=== PATIENT | female | born 1985 | race Caucasian/White ===

== ENCOUNTER 2024-09-27 09:35 | Emergency (ER) | payer BC ==
[~2024-09-27] VITALS: Ht 172.7 cm; Wt 95.3 kg
[2024-09-27] MEDS ORDERED: SERTRALINE HYDR50 MG PO (09:46)
[2024-09-27] MEDS ORDERED: BUSPIRONE HCL15 MG PO (09:46)
[2024-09-27] MEDS ORDERED: SODIUM CHLORIDE 0.9% 1,000 ML IV ONE (09:55)
[2024-09-27] MEDS ORDERED: Ondansetron Hydrochloride 4 MG/2 ML VIAL IV ONE (09:55)
[2024-09-27 10:15] LABS: BASO # 0.0 10*3/uL (0.0-0.1); BASO % 0.2 % (0.0-1.0); EOS # 0.0 10*3/uL (0.0-0.4); EOS % 0.1 % (1.0-4.0); MEAN CELL VOLUME 87.4 fl (81.0-99.0); MEAN CORPUSCULAR HGB 29.1 pg (27.0-31.0); MEAN PLATELET VOLUME 9.1 fl (9.6-12.3); MONO # 0.7 10*3/uL (0.1-1.0); MONO % 4.1 % (3.0-9.0); NEUT # 14.5 10*3/uL (2.3-7.9); NEUT % 85.6 % (47.0-73.0); NUCLEATED RED BLOOD CELL 0.0 % (0.0-0.0); NUCLEATED RED BLOOD CELL 0.0 10*3/uL (0.0-0.0); PLATELET COUNT AUTOMATED 333 10*3/uL (130-400); RED CELL DISTRI WIDTH 12.8 % (0-14.5)
[2024-09-27 10:51] LABS: BETA-HCG, QUANT < 3.0 mIU/mL (3-10); BUN 10 mg/dl (9-23); SGPT/ALT 19 U/L (5-49)
[2024-09-27] MEDS ORDERED: IOHEXOL 300 MG/ML 100 ML VIAL IV ONE (11:35)
[2024-09-27 13:06] LABS: BILIRUBIN Negative (Negative); BLOOD Negative (Negative); CLARITY Clear (Clear); COLOR Yellow (Yellow); KETONE 1+ (Negative); LEUKO ESTERASE Negative (Negative); NITRITE Negative (Negative); SPECIFIC GRAVITY >= 1.030 (1.001-1.030); UROBILINOGEN 0.2 E.U./dl (0.0-1.0)
[2024-09-27 13:14] LABS: PH 8.5 (4.5-8.0)
[2024-09-27 13:21] LABS: RBC 0-2 rbc/hpf (0-2)
[2024-09-27] MEDS ORDERED: METRONIDAZOLE500 M1 PO ×2 (13:30→15:14)
[2024-09-27] MEDS ORDERED: CIPRO500 MG PO ×2 (13:30→15:14)
[2024-09-27] MEDS ORDERED: MELOXICAM15 MG PO ×2 (13:30→15:14)
[2024-09-27] MEDS ORDERED: Ciprofloxacin Hydrochloride 500 MG TAB PO ONE (13:45)
[2024-09-27] MEDS ORDERED: metroNIDAZOLE 500 MG TAB PO ONE (13:45)
== END 2024-09-27 14:19 | disposition home or self-care (01) ==
LOC: ED 09:35
PROVIDERS: Internal Medicine
DX: K52.9 Noninfective gastroenteritis and colitis, unspecified (principal); K29.70 Gastritis, unspecified, without bleeding; F41.9 Anxiety disorder, unspecified; Z79.899 Other long term (current) drug therapy

== ENCOUNTER 2024-10-10 08:46 | Emergency (ER) | payer BC ==
[~2024-10-10] VITALS: Ht 172.7 cm; Wt 99.8 kg
[~2024-10-10 08:46] MED LIST: BUSPIRONE HCL15 MG PO; CIPRO500 MG PO; MELOXICAM15 MG PO; METRONIDAZOLE500 M1 PO; SERTRALINE HYDR50 MG PO
[2024-10-10] MEDS ORDERED: SODIUM CHLORIDE 0.9% 1,000 ML IV ONE (09:20)
[2024-10-10 09:37] LABS: BASO # 0.0 10*3/uL (0.0-0.1); BASO % 0.4 % (0.0-1.0); EOS # 0.1 10*3/uL (0.0-0.4); EOS % 0.8 % (1.0-4.0); MEAN CELL VOLUME 89.2 fl (81.0-99.0); MEAN CORPUSCULAR HGB 28.9 pg (27.0-31.0); MEAN PLATELET VOLUME 8.8 fl (9.6-12.3); MONO # 0.6 10*3/uL (0.1-1.0); MONO % 6.3 % (3.0-9.0); NEUT # 7.6 10*3/uL (2.3-7.9); NEUT % 76.7 % (47.0-73.0); NUCLEATED RED BLOOD CELL 0.0 % (0.0-0.0); NUCLEATED RED BLOOD CELL 0.0 10*3/uL (0.0-0.0); PLATELET COUNT AUTOMATED 265 10*3/uL (130-400); RED CELL DISTRI WIDTH 13.0 % (0-14.5)
[2024-10-10] MEDS ORDERED: IOHEXOL 300 MG/ML 100 ML VIAL IV ONE (09:45)
[2024-10-10 09:47] LABS: ACT PARTIAL THROMBO TIME 25.4 SECONDS (20.0-32.1)
[2024-10-10 10:01] LABS: BUN 16 mg/dl (9-23); SGPT/ALT 38 U/L (5-49)
== END 2024-10-10 12:34 | disposition home or self-care (01) ==
LOC: ED 08:46
PROVIDERS: Internal Medicine
DX: R10.9 Unspecified abdominal pain (principal); R11.2 Nausea with vomiting, unspecified; Z79.899 Other long term (current) drug therapy; Z98.890 Other specified postprocedural states

== ENCOUNTER → 2024-10-27 | Outpatient (CLI) | payer BC ==
[2024-10-27 10:46] LABS: BASO # 0.0 10*3/uL (0.0-0.1); BASO % 0.4 % (0.0-1.0); EOS # 0.1 10*3/uL (0.0-0.4); EOS % 0.7 % (1.0-4.0); MEAN CELL VOLUME 88.3 fl (81.0-99.0); MEAN CORPUSCULAR HGB 29.0 pg (27.0-31.0); MEAN PLATELET VOLUME 9.3 fl (9.6-12.3); MONO # 0.5 10*3/uL (0.1-1.0); MONO % 5.4 % (3.0-9.0); NEUT # 6.6 10*3/uL (2.3-7.9); NEUT % 72.3 % (47.0-73.0); NUCLEATED RED BLOOD CELL 0.0 % (0.0-0.0); NUCLEATED RED BLOOD CELL 0.0 10*3/uL (0.0-0.0); PLATELET COUNT AUTOMATED 315 10*3/uL (130-400); RED CELL DISTRI WIDTH 12.8 % (0-14.5)
== END | disposition home or self-care (01) ==
LOC: LAB 08:51 → MAMMO 08:51
PROVIDERS: Nurse Practitioner Family; ATTEND Nurse Practitioner Women's Health
DX: Z12.31 Encounter for screening mammogram for malignant neoplasm of breast (principal); R92.323 Mammographic fibroglandular density, bilateral breasts; N70.11 Chronic salpingitis; R19.7 Diarrhea, unspecified; Z97.5 Presence of (intrauterine) contraceptive device

== ENCOUNTER → 2024-11-19 | Outpatient (CLI) | payer BC | LOC: LAB 12:49 | PROVIDERS: ATTEND Nurse Practitioner Family | DX: A49.8 Other bacterial infections of unspecified site (principal) ==